=== PATIENT | female | born 1965 | race Caucasian/White ===

== ENCOUNTER 2022-01-11 08:13 | Day surgery (SDC) | payer OTHER, SELFPAY ==
[2022-01-11] VITALS (10 sets, daily range): BP systolic 131–169; BP diastolic 74–99; PULSE 63–80; RESP 16–20; TEMP 36.3–36.7; O2SAT 88–99; BMI 59.4
[2022-01-11] MEDS: LACTATED RINGERS 1000 ML 1,000 ML 100 ML IV ×2 (08:30→11:42)
[2022-01-11] MEDS: SODIUM CHLORIDE 0.9 % (FLUSH) 10 ML SYRINGE IVF (08:51)
[2022-01-11] MEDS: CEFAZOLIN 2 GM INJ IVP (10:10)
--- NOTE | 2022-01-11 11:08 | P.NB_ITS ---
Nerve Block Nerve Block Time Seen by Provider: 11:11 Date Seen: 01/11/22 Type of block requested by surgeon for post-operative analgesia: intercostal Side: bilateral Time out performed: Yes Verification of patient name: Yes Verification of date of : Yes Site marking: site marked Name of person performing procedure: O[facility] Malave Continuous monitoring Was continuous monitoring of O2 sat, B/P, youth nutritional monitor, recorded every 15 minutes?: Yes Procedure Checklist: sterile prep, needles and gloves Ultrasound guided. Images saved: Yes Medications given in 5ml increments after negative aspiration: Marcaine (30 Total) %: 0.25 mL: 15 Needle gauge: 20 and Exparel (10 Total) mL: 5 Needle gauge: 20 Patient tolerated procedure well: Yes Block Charges Block Charge (with Pro Fee): TAP Bilateral Use of Ultrasound Machine for Block: Yes- US Guidance/pain block
--- NOTE | 2022-01-11 11:56 | PM.GSPRC ---
Operative Note Date of procedure: 01/11/22 Type of Procedure: Laparoscopic cholecystectomy Procedure Description: After discussing the risks and benefits of the procedure, the patient signed informed consent.? The operative site was marked and the patient was brought to the operating room and placed on the operating table in supine position.? Care was taken to pad the patient's pressure points.?? The patient was then intubated by anesthesia.?? The operative site was then prepped and draped in the usual sterile fashion.? A time-out was then performed. Entrance to the abdomen was gained via a 5 mm Visiport in the left upper quadrant. The abdomen was insufflated and briefly surveyed for signs of injury. There was none. 11 mm umbilical port was placed as well as 2 working ports along the right costal margin. An additional subxiphoid port was placed, due to the patient's body habitus. Patient was then placed in reverse Trendelenburg position with the right side up. The gallbladder fundus was grasped and retracted cephalad. The infundibulum was grasped. A combination of hook cautery and blunt dissection was used to carefully dissect out the cystic duct and artery until they could clearly be seen entering the gallbladder without any intervening structures. Dissection was slightly difficult 2nd to the fatty nature of the gallbladder fossa, as well as a very large liver. The gallbladder was dissected off the cystic plate to achieve the critical view. Once this was achieved the cystic duct and artery were each clipped with 2 clips proximally and 1 clip distally and transected with the scissors. The gallbladder was then taken off of the liver bed. And removed from the abdomen using an Endo-Catch bag. The gallbladder bed was surveyed for hemostasis. A small amount of bile which had spilled was suctioned from the abdomen. The ports were then removed under direct vision. The umbilical port fascia was closed with 0 Vicryl. The skin was closed with absorbable subcuticular suture. Instrument sponge and needle counts were correct at the end of the case. The patient was then woken and transferred to the PACU in stable condition. ? Sterile dressings were then applied. ? The patient was then woken and transported to the recovery area in stable condition. ? The patient tolerated the procedure well. Findings: Cholelithiasis, normal gallbladder. Anesthesia: GETA Surgeon: Kelsey Peck MD Estimated blood loss (mL): 10 Condition: stable Disposition: PACU
--- NOTE | 2022-01-11 12:05 | W.ANESCHARGE ---
Anesthesia Charges Start Date/Time Anesthesia Start Date: 01/11/22 Anesthesia Start Time: 09:56 Stop Date/Time Anesthesia Stop Date: 01/11/22 Anesthesia Stop Time: 12:05 Summary Emergency: No
== END 2022-01-11 13:41 | disposition home or self-care (01) ==
PROVIDERS: PCP Physician Assistant; Visit Provider Surgery
PROC: 0FT44ZZ Resection of Gallbladder, Percutaneous Endoscopic Approach (ICD-10-PCS; CPT 47562; principal; 2022-01-11 09:30)
DX: K80.10 Calculus of gallbladder with chronic cholecystitis without obstruction (principal)
CPT/HCPCS: 47562; 00790; 64488; 76942; 88304; C9290; J0330; J0690; J1100; J1200; J1885; J2405; J2704; J3010; J3490; J7120

== ENCOUNTER 2022-09-05 09:15 | Outpatient (RCR) | payer OTHER, SELFPAY | END 2022-11-19 14:33 | disposition home or self-care (01) | PROVIDERS: PCP Physician Assistant; Visit Provider Physician Assistant | DX: M17.12 Unilateral primary osteoarthritis, left knee (principal); M25.562 Pain in left knee; R26.9 Unspecified abnormalities of gait and mobility; R53.1 Weakness; Z51.89 Encounter for other specified aftercare | CPT/HCPCS: 97110; 97161 ==